=== PATIENT | male | born 1990 ===

== ENCOUNTER 2023-02-20 13:16 | Emergency (ER) | payer MEDICAID ==
[~2023-02-20] VITALS: Ht 180.3 cm; Wt 81.8 kg
[2023-02-20 13:25] VITALS: TEMP 98.6
[2023-02-20] MEDS ORDERED: ACETAMINOPHEN 500 MG TABLET PO ONE (13:45)
[2023-02-20] MEDS ORDERED: LIDOCAINE 5% TRANSDERMAL PATCH TD ONE (13:45)
[2023-02-20 13:59] LABS: APPEARANCE,URINE CLEAR (CLEAR); BILIRUBIN,URINE NEGATIVE (NEGATIVE); COLOR,URINE LIGHT YELLOW (YELLOW); GLUCOSE, URINE (UA) NEGATIVE (NEGATIVE); KETONES,URINE NEGATIVE (NEGATIVE); LEUKOCYTE ESTERASE ,URINE NEGATIVE (NEGATIVE); NITRATE,URINE NEGATIVE (NEGATIVE); OCCULT BLOOD,URINE NEGATIVE (NEGATIVE); PH,URINE 7.5 (5.0-8.0); PROTEIN,URINE NEGATIVE (NEGATIVE); SPECIFIC GRAVITIY, URINE 1.018 (1.003-1.030); UROBILINOGEN,URINE <=1.0 mg/dL (<=1.0)
[2023-02-20] MEDS ORDERED: ACET-3385 PO (15:42)
[2023-02-20] MEDS ORDERED: LIDO700A15 TP (15:42)
[2023-02-20] MEDS ORDERED: IBUP-1492 PO (15:42)
[2023-02-20 15:55] VITALS: BP 127/78; PULSE 80; RESP 18
== END 2023-02-20 16:06 | disposition home or self-care (01) ==
LOC: EMS 13:19
DX: T14.8XXA Other injury of unspecified body region, initial encounter (principal); R30.0 Dysuria; X58.XXXA Exposure to other specified factors, initial encounter; Y93.89 Activity, other specified; Y92.89 Other specified places as the place of occurrence of the external cause; Y99.8 Other external cause status
CPT/HCPCS: 71101; 81003; 87491; 87591; 99284